=== PATIENT | female | born 1975 | race Caucasian/White ===

== ENCOUNTER 2021-12-26 18:33 | Emergency (ER) | payer OTHER ==
[2021-12-26 19:08] VITALS: BP 126/76; PULSE 70; TEMP 97.8; BMI 24.1
[2021-12-26] MEDS ORDERED: KETOROLAC TROMETHAMINE 30 MG/1 ML VIAL IM ONE (21:00)
[2021-12-26] MEDS ORDERED: KETOROLAC TROMETHAMINE 30 MG/1 ML VIAL ONE (21:04)
== END 2021-12-26 21:26 | disposition home or self-care (01) ==
LOC: JERFT 18:33
PROC: 3E023GC Introduction of Other Therapeutic Substance into Muscle, Percutaneous Approach (ICD-10-PCS; principal; 2021-12-26)
DX: R07.0 Pain in throat (principal)
CPT/HCPCS: 87651; 96372; 99284-25

== ENCOUNTER 2022-12-01 09:24 | Emergency (ER) | payer OTHER ==
[2022-12-01 09:35] VITALS: BP 107/85; PULSE 78; RESP 16; TEMP 100; BMI 24.1
[2022-12-01] MEDS ORDERED: ACETAMINOPHEN 500 MG TABLET (FP) PO ONE (10:49)
[2022-12-01] MEDS ORDERED: ACETAMINOPHEN 500 MG TABLET (FP) ONE (11:03)
== END 2022-12-01 11:25 | disposition home or self-care (01) ==
LOC: JERFT 09:24
DX: H66.001 Acute suppurative otitis media without spontaneous rupture of ear drum, right ear (principal); J01.10 Acute frontal sinusitis, unspecified
CPT/HCPCS: 0241U-QW; 99283-25

== ENCOUNTER 2024-05-26 18:35 | Emergency (ER) | payer OTHER ==
[2024-05-26 18:39] VITALS: BP 129/70; PULSE 94; RESP 18; TEMP 99.7; BMI 23.8
[2024-05-26 19:04] LABS: EPI CELLS 3 /uL (0-25.1); HYALINE CASTS 0 /uL (0-3.1); PH,URINE 7.5 (5.0-8.0); URINE APPEARANCE CLEAR; URINE BACTERIA 340 /uL (0-1359); URINE BILIRUBIN NEGATIVE (NEGATIVE); URINE COLOR YELLOW; URINE GLUCOSE (UA) NEGATIVE (NEGATIVE); URINE KETONE NEGATIVE (NEGATIVE); URINE LEUK ESTERASE 2+ (NEGATIVE); URINE NITRITE NEGATIVE (NEGATIVE); URINE PROTEIN NEGATIVE (NEGATIVE); URINE RBC 124 /uL (0-23.9); URINE UROBILINOGEN 0.2 mg/dL (0.2-1.0); URINE WBC 443 /uL (0-25.8)
== END 2024-05-26 20:06 | disposition home or self-care (01) ==
LOC: JERFT 18:35
DX: N30.00 Acute cystitis without hematuria (principal); J06.9 Acute upper respiratory infection, unspecified; R05.9 Cough, unspecified; J02.9 Acute pharyngitis, unspecified; R30.0 Dysuria; R35.0 Frequency of micturition; R39.15 Urgency of urination; R09.81 Nasal congestion; R09.82 Postnasal drip; H92.09 Otalgia, unspecified ear; Z20.822 Contact with and (suspected) exposure to COVID-19
CPT/HCPCS: 0241U-QW; 71046-TC-FY; 81003; 99284-25